=== PATIENT | male | born 1950 | race Caucasian/White ===

== ENCOUNTER → 2017-08-26 | Outpatient (CLI) | payer MEDICARE, OTHER ==
--- NOTE | 2017-08-26 13:39 | PCVCIMAG ---
EXAM: BILATERAL CAROTID DUPLEX INDICATION: Carotid Occlusive Disease. FINDINGS: Doppler Measurements (centimeters per second): RIGHT: Peak CCA-98, Peak ECA-98, Diastolic ICA-42, Peak ICA-158, ICA/CCA Ratio-1.6. LEFT: Peak CCA-92, Peak ECA-108, Diastolic ICA-27, Peak ICA-82, ICA/CCA Ratio-0.9. RIGHT CAROTID: The carotid bulb has moderate plaque. The proximal internal carotid artery shows 50-60% stenosis. The common carotid artery shows no significant stenosis. The external carotid artery shows no significant stenosis. LEFT CAROTID: The carotid bulb has mild plaque. The proximal internal carotid artery shows <40% stenosis. The common carotid artery shows no significant stenosis. The external carotid artery shows no significant stenosis. Antegrade flow in both vertebral arteries. IMPRESSION: 50-60% stenosis of the right internal carotid artery with moderate plaque. <40% stenosis of the left internal carotid artery with mild plaque. LOC:[place] [id number]
--- NOTE | 2017-08-26 14:48 | PCVCIMAG ---
APPROVED REPORT Exam: Stress Echocardiogram Indication: CAD s/p CABG, HTN, dyspnea Patient Location: Echo lab Stress Nurse: Sarika Caballero RN Status: routine Ht: 5 ft 9 in HR: 52 bpm BP: 126/86 mmHg Rhythm: Bradycardia Procedure The patient underwent an Exercise Stress Test using the [place]ura Protocol. Blood pressure, heart rate, and EKG were monitored. An Echocardiogram was performed by in flight technician in four stages in quad fashion. At peak stress, four selected images were obtained and placed side by side with resting images for comparison. Stress Test Details Stress Test: Exercise stress testing was performed using a [place]ura protocol. HR Resting HR: 46 bpmMax Heart Rate (APMHR): 154 bpm Max HR Achieved: 109 bpmTarget HR (85% APMHR): 130 bpm % of APMHR: 70 Recovery HR: 59 bpm HR response to stress: Normal HR response to stress BP Resting BP: 126/86 mmHg Max BP: 152/88 mmHg Recovery BP: 148/78 mmHg ECG Resting ECG: Sinus bradycardia Stress ECG: Sinus Rhythm Arrhythmia: Occasional short runs of SVT Recovery ECG: Sinus Rhythm Clinical Reason for Termination: Leg pain/fatigue, maximal effort Stress Symptoms: Dyspnea Exercise duration: 8 min 4 sec Highest Stage Achieved: Stage 3: 3.4 mph at 14% grade. Exercise capacity: 10.4 METs Overall Exercise Capacity for Age: Average Pre-Stress Echo The resting Echocardiogram showed normal left ventricular contractility with an estimated Ejection Fraction of about 50%. Equivocal mid inferior hypokinesis. Post-Stress Echo The stress Echocardiogram showed normal left ventricular contractility with an estimated Ejection Fraction of about 55-60%. Equivocal mid inferior hypokinesis. Clinical No clinical or ECG evidence for ischemia. Non-diagnostic ST changes. Conclusion Clinical Response: Non-ischemic Exercise Capacity: Average Stress ECG Response: Non-diagnostic Stress Echo Images: Ischemic Non-diagnostic heart rate response, leg fatigue limited heart rate to only 70% of target. Consider nuclear stress testing for increased accuracy in following CAD/CABG in the future. Other Information Study Quality: Fair <Conclusion> Non-diagnostic heart rate response, leg fatigue limited heart rate to only 70% of target. Consider nuclear stress testing for increased accuracy in following CAD/CABG in the future.
== END | disposition home or self-care (01) ==
LOC: PCVCIMAG 13:20
PROVIDERS: ATTEND Internal Medicine Cardiovascular Disease
DX: I65.23 Occlusion and stenosis of bilateral carotid arteries (principal); I10 Essential (primary) hypertension; I25.10 Atherosclerotic heart disease of native coronary artery without angina pectoris; E78.5 Hyperlipidemia, unspecified; R06.00 Dyspnea, unspecified; Z95.1 Presence of aortocoronary bypass graft
CPT/HCPCS: 93325; 93351; 93880

== ENCOUNTER → 2018-03-27 | Outpatient (CLI) | payer MEDICARE, OTHER | END | disposition home or self-care (01) | LOC: PCVCCLINIC 10:07 | DX: I65.23 Occlusion and stenosis of bilateral carotid arteries (principal); I25.10 Atherosclerotic heart disease of native coronary artery without angina pectoris; E78.00 Pure hypercholesterolemia, unspecified; I10 Essential (primary) hypertension; I77.9 Disorder of arteries and arterioles, unspecified; I67.1 Cerebral aneurysm, nonruptured; Z95.1 Presence of aortocoronary bypass graft; Z79.82 Long term (current) use of aspirin; Z79.899 Other long term (current) drug therapy | CPT/HCPCS: 80061; 93005; 93880; G0463 ==

== ENCOUNTER → 2019-07-14 | Outpatient (CLI) | payer MEDICARE, OTHER | END | disposition home or self-care (01) | LOC: PCVCCLINIC 16:13 | PROVIDERS: ATTEND Internal Medicine Cardiovascular Disease | DX: I25.10 Atherosclerotic heart disease of native coronary artery without angina pectoris (principal); I67.1 Cerebral aneurysm, nonruptured; I10 Essential (primary) hypertension; I65.23 Occlusion and stenosis of bilateral carotid arteries; E78.00 Pure hypercholesterolemia, unspecified; Z95.1 Presence of aortocoronary bypass graft; Z72.89 Other problems related to lifestyle; Z79.82 Long term (current) use of aspirin; Z79.899 Other long term (current) drug therapy; Z88.8 Allergy status to other drugs, medicaments and biological substances | CPT/HCPCS: 93005; G0463 ==

== ENCOUNTER → 2019-09-01 | Outpatient (CLI) | payer MEDICARE, OTHER ==
[~2019-09-01] MED LIST: REGADENOSON 0.4 MG/5 ML DISP.SYRIN. IV ONE
--- NOTE | 2019-09-01 10:42 | PCVCIMAG ---
EXAM: BILATERAL CAROTID DUPLEX INDICATION: Carotid Occlusive Disease. FINDINGS: Doppler Measurements (centimeters per second): RIGHT: Peak CCA-63, Peak ECA-67, Diastolic ICA-57, Peak ICA-157, ICA/CCA Ratio-2.5. LEFT: Peak CCA-78, Peak ECA-70, Diastolic ICA-22, Peak ICA-78, ICA/CCA Ratio-1.0. RIGHT CAROTID: The carotid bulb has moderate plaque. The proximal internal carotid artery shows 60% stenosis. The common carotid artery shows no significant stenosis. The external carotid artery shows no significant stenosis. LEFT CAROTID: The carotid bulb has moderate plaque. The proximal internal carotid artery shows <40% stenosis. The common carotid artery shows no significant stenosis. The external carotid artery shows no significant stenosis. Antegrade flow in both vertebral arteries. IMPRESSION: 60% stenosis of the right internal carotid artery with moderate plaque. <40% stenosis of the left internal carotid artery with moderate plaque. No change since March 2018 study. LOC:[id number]
== END | disposition home or self-care (01) ==
LOC: PCVCIMAG 08:32
PROVIDERS: ATTEND Internal Medicine Cardiovascular Disease
DX: I65.23 Occlusion and stenosis of bilateral carotid arteries (principal); I73.9 Peripheral vascular disease, unspecified; E78.00 Pure hypercholesterolemia, unspecified; I10 Essential (primary) hypertension; I25.10 Atherosclerotic heart disease of native coronary artery without angina pectoris
CPT/HCPCS: 78452; 93017; 93880; A9500; J2785